=== PATIENT | male | born 1965 | race Caucasian/White ===

== ENCOUNTER 2020-08-09 20:11 | Emergency (ER) | payer BC ==
[~2020-08-09] VITALS: Ht 180.3 cm; Wt 72.7 kg
[2020-08-09 20:14] VITALS: BP 146/93
== END 2020-08-09 20:44 ==
LOC: ER 20:12
DX: Z04.1 Encounter for examination and observation following transport accident (principal)
CPT/HCPCS: 99283

== ENCOUNTER 2023-12-19 20:16 | Emergency (ER) | payer BC ==
[~2023-12-19] VITALS: Ht 182.9 cm; Wt 77.0 kg
[2023-12-19 20:57] LABS: HEMATOCRIT 32.3 % (42.0-52.0); RED CELL DISTRIBUTION WIDTH 20.4 % (11.5-14.5); WHITE BLOOD COUNT 8.6 X10'3 (4.5-11.0)
[2023-12-19 20:59] LABS: HEMOGLOBIN 10.1 g/dl (14.0-17.9); MEAN CORPUSCULAR HEMOGLOBIN 20.8 PG (27.0-31.0); MEAN CORPUSCULAR HGB CONC 31.1 g/dL (33.0-36.5); MEAN CORPUSCULAR VOLUME 66.8 FL (78-98); MEAN PLATELET VOLUME 7.9 FL (7.4-10.4); PLATELET COUNT 192 X10'3 (140-440); RED BLOOD COUNT 4.84 X10'6 (4.70-6.10)
[2023-12-19 21:10] LABS: ALANINE AMINOTRANSFERASE 26 U/L (12-78); ALBUMIN 3.9 G/DL (3.4-5.0); ALKALINE PHOSPHATASE 87 IU/L (46-116); ANION GAP 15 (8-16); ASPARTATE AMINO TRANSFERASE 20 U/L (10-37); BILIRUBIN,TOTAL 0.5 MG/DL (0.1-1.0); BLOOD UREA NITROGEN 15 MG/DL (7-18); CALCIUM 9.5 MG/DL (8.5-10.1); CHLORIDE 97 MMOL/L (99-107); GLUCOSE 220 MG/DL (70-104); LIPASE 10 U/L (16-77); SODIUM 135 MMOL/L (135-145); TOTAL CARBON DIOXIDE 22.8 MMOL/L (24-32); TOTAL PROTEIN 7.7 G/DL (6.4-8.2); eCRCL 86 ML/MIN; eGFR 76 ML/MIN
[2023-12-19 21:34] LABS: ANISOCYTOSIS 3+; ELLIPTOCYTES FEW; LARGE PLATELETS FEW; MICROCYTOSIS 2+; PLATELET ESTIMATE NORMAL; TARGET CELLS 1+; TOTAL CELLS COUNTED 100
[2023-12-19 21:35] LABS: SCHISTOCYTES FEW
[2023-12-19 21:53] LABS: HYPOCHROMASIA 1+
[2023-12-20] MEDS: HYDROcodone/acetaminophen 5mg/325mg tablet PO ONE (02:13)
[2023-12-20 02:20] VITALS: TEMP 98
[2023-12-20 04:16] LABS: BILIRUBIN,URINE NEGATIVE (Neg); CLARITY,URINE CLEAR (Clear); COLOR,URINE STRAW (Yellow); GLUCOSE, URINE 250 mg/dl (Neg); KETONES,URINE 40 mg/dl (Neg); LEUKOCYTE ESTERASE ,URINE NEGATIVE (Neg); NITRITES, URINE NEGATIVE (Neg); OCCULT BLOOD,URINE NEGATIVE (Neg); PH,URINE 6.5 (4.8-8.0); PROTEIN,URINE NEGATIVE (Neg); UROBILINOGEN,URINE 0.2 E.U/dL (0.2-1.0)
[2023-12-20 04:33] LABS: UA COLLECTION TYPE URINAL
[2023-12-20 05:06] VITALS: BP 137/88; PULSE 66; RESP 21; O2SAT 99
== END 2023-12-20 05:08 | disposition home or self-care (01) ==
LOC: ER 20:16
DX: R10.84 Generalized abdominal pain (principal); Z88.1 Allergy status to other antibiotic agents
CPT/HCPCS: 36415; 74176; 80053; 81003; 83690; 85007; 85025; 99284